=== PATIENT | male | born 1955 | race Hispanic/Latino ===

== ENCOUNTER 2021-09-02 01:01 | Observation (INO) | payer OTHER ==
[~2021-09-02] VITALS: Ht 152.4 cm; Wt 62.7 kg
[2021-09-02 01:24] LABS: BASOPHILS % (AUTO) 0.5 % (0.0-5.0); EOSINOPHILS % (AUTO) 1.7 % (0.0-8.0); HEMATOCRIT 35.2 % (42-54); LYMPHOCYTES % (AUTO) 15.7 % (21.0-51.0); MEAN CORPUSCULAR HEMOGLOBIN 30.3 pg (27.0-33.0); MEAN CORPUSCULAR HGB CONC 34.4 g/dL (32.0-36.0); MEAN CORPUSCULAR VOLUME 88.2 fL (79-99); MONOCYTES % (AUTO) 7.8 % (3.0-13.0); NEUTROPHILS % (AUTO) 74.1 % (40.0-77.0); PLATELET COUNT (AUTO) 265 K/uL (130-400); RED BLOOD CELL COUNT(AUTO) 3.99 MIL/uL (4.50-6.20); RED CELL DISTRIBUTION WIDTH 13.4 % (11.0-15.5); WHITE BLOOD COUNT (AUTO) 8.8 K/uL (4.8-10.8)
[2021-09-02 01:28] LABS: APPEARANCE,URINE Clear (CLEAR); BILIRUBIN,URINE Negative (NEGATIVE); COLOR,URINE Yellow (YELLOW); GLUCOSE, URINE (UA) Negative (NEGATIVE); KETONES,URINE Negative (NEGATIVE); LEUKOCYTE ESTERASE ,URINE Negative (NEGATIVE); NITRATE,URINE Negative (NEGATIVE); OCCULT BLOOD,URINE Negative (NEGATIVE); PH,URINE 7.5 (5.0-8.0); PROTEIN,URINE Negative (NEGATIVE); UROBILINOGEN,URINE 0.2 mg/dL (0.2-1.0)
[2021-09-02] MEDS ORDERED: LABETALOL 20MG SYG IV ONE (01:30)
[2021-09-02] MEDS ORDERED: DEXTROSE 50%-WATER 50 ML DISP.SYRIN IV ONE (01:30)
[2021-09-02 01:36] LABS: CARBON DIOXIDE 28 mmol/L (21-32); CHLORIDE 102 mmol/L (101-111); CREATININE 0.8 mg/dL (0.5-1.5); GLOMERULAR FILTR. RATE CALC 103 mL/min (>60); GLUCOSE,RANDOM 72 mg/dL (70-105); POTASSIUM 3.7 mmol/L (3.5-5.1); SODIUM SERUM 140 mmol/L (136-145); UREA NITROGEN, BLOOD 13 mg/dL (7-18)
[2021-09-02 01:42] LABS: ALANINE AMINOTRANSFERASE 26 U/L (12-78); ALBUMIN 4.2 g/dL (3.5-5.0); ASPARTATE AMINOTRANSFERASE 25 U/L (10-37); BILIRUBIN,TOTAL 0.3 mg/dL (0.2-1.0); TOTAL PROTEIN, SERUM 8.1 g/dL (6.0-8.3)
[2021-09-02 01:43] LABS: ALCOHOL, BLOOD < 3 mg/dL (0-10)
[2021-09-02] MEDS ORDERED: DEXTROSE 10%-WATER 1,000 ML IV SCH (02:00)
[2021-09-02] MEDS ORDERED: DEXTROSE 10%-WATER 1,000 ML IV ONE (02:03)
[2021-09-02] MEDS ORDERED: NITROGLYCERIN 0.4 MG SL TAB SL PRN (03:00)
[2021-09-02] MEDS ORDERED: GUAIFENESIN-DM 200/20 MG 10 ML PO PRN (03:00)
[2021-09-02] MEDS ORDERED: HYDRALAZINE 20MG/ML VIAL IV PRN (03:00)
[2021-09-02] MEDS ORDERED: ACETAMINOPHEN 325 MG TAB PO PRN ×2 (03:00)
[2021-09-02] MEDS ORDERED: LACTULOSE 20 GM/30 ML UDCUP PO PRN (03:00)
[2021-09-02] MEDS ORDERED: ONDANSETRON 4MG INJ IV PRN (03:00)
[2021-09-02] MEDS ORDERED: MAG/ALUM/SIMETH 30 ML UDCUP PO PRN (03:00)
[2021-09-02] MEDS ORDERED: ZOLPIDEM TARTRATE 5 MG TAB PO PRN (03:00)
[2021-09-02] MEDS ORDERED: SIMV40TA59 PO (03:02)
[2021-09-02] MEDS ORDERED: GLYB1TAB32 PO (03:02)
[2021-09-02] MEDS ORDERED: LISI10TA24 PO (03:02)
[2021-09-02] MEDS ORDERED: ASPI-1197 PO (03:02)
[2021-09-02 03:18] VITALS: BP 148/69
[2021-09-02 07:54] LABS: HEMOGLOBIN A1C 6.6 % (4.0-6.0)
[2021-09-02 08:09] VITALS: BP 124/75
[2021-09-02] MEDS: FAMOTIDINE 20MG VIAL IV SCH (10:19)
[2021-09-02] MEDS: LISINOPRIL 10 MG TABLET PO SCH (10:19)
[2021-09-02] MEDS: ASPIRIN 81MG CHEW TAB PO SCH (10:19)
[2021-09-02] MEDS: ENOXAPARIN SODIUM 30 MG/0.3 ML SQ SCH (10:20)
[2021-09-02 10:54] VITALS: BP 121/63
[2021-09-02 15:42] VITALS: BP 113/66
[2021-09-02 20:14] VITALS: BP 131/90
[2021-09-02] MEDS ORDERED: SIMVASTATIN 10 MG TABLET PO SCH (21:00)
[2021-09-02 23:26] VITALS: BP 120/65
[2021-09-03 03:35] VITALS: BP 125/72
[2021-09-03 04:34] LABS: BASOPHILS % (AUTO) 1.2 % (0.0-5.0); EOSINOPHILS % (AUTO) 5.3 % (0.0-8.0); LYMPHOCYTES % (AUTO) 36.5 % (21.0-51.0); MEAN CORPUSCULAR HEMOGLOBIN 29.9 pg (27.0-33.0); MEAN CORPUSCULAR HGB CONC 33.1 g/dL (32.0-36.0); MEAN CORPUSCULAR VOLUME 90.2 fL (79-99); MONOCYTES % (AUTO) 10.2 % (3.0-13.0); NEUTROPHILS % (AUTO) 46.6 % (40.0-77.0); PLATELET COUNT (AUTO) 242 K/uL (130-400); RED BLOOD CELL COUNT(AUTO) 3.88 MIL/uL (4.50-6.20); RED CELL DISTRIBUTION WIDTH 13.5 % (11.0-15.5); WHITE BLOOD COUNT (AUTO) 5.9 K/uL (4.8-10.8)
[2021-09-03 05:07] LABS: ALBUMIN 3.6 g/dL (3.5-5.0); BILIRUBIN,TOTAL 0.4 mg/dL (0.2-1.0); CREATININE 0.7 mg/dL (0.5-1.5); POTASSIUM 4.1 mmol/L (3.5-5.1); TOTAL PROTEIN, SERUM 7.4 g/dL (6.0-8.3)
[2021-09-03 08:42] VITALS: BP 133/67
[2021-09-03] MEDS: ENOXAPARIN SODIUM 30 MG/0.3 ML SQ SCH (09:18)
[2021-09-03] MEDS: ASPIRIN 81MG CHEW TAB PO SCH (09:18)
[2021-09-03] MEDS: FAMOTIDINE 20MG VIAL IV SCH (09:19)
[2021-09-03] MEDS: LISINOPRIL 10 MG TABLET PO SCH (09:19)
[2021-09-03 11:20] VITALS: BP 128/76
[2021-09-03 17:08] VITALS: BP 143/77
== END 2021-09-03 18:00 | disposition home or self-care (01) ==
LOC: EDH 01:01 → EDHIP 01:51 → 3CH 02:28
PROVIDERS: ADMIT Internal Medicine Critical Care Medicine; ATTEND Internal Medicine Critical Care Medicine
DX: E11.649 Type 2 diabetes mellitus with hypoglycemia without coma (principal); T38.3X5A Adverse effect of insulin and oral hypoglycemic [antidiabetic] drugs, initial encounter; I10 Essential (primary) hypertension; E78.00 Pure hypercholesterolemia, unspecified; H40.9 Unspecified glaucoma; Z79.82 Long term (current) use of aspirin; Z87.891 Personal history of nicotine dependence
CPT/HCPCS: 36415 ×2; 80053 ×2; 81003; 82948 ×13; 83036; 83605; 85025 ×2; 96361; 96372 ×2; 96374; 96375; 96376; 99284; G0378 ×36; J1650 ×2; J3490 ×3; J7070

== ENCOUNTER → 2025-02-08 | Outpatient (CLI) | payer MEDICARE ==
[~2025-02-08] MED LIST: ASPI-1197 PO; GADOTERATE MEGLUMINE 10 MMOL/20 ML VIAL IV ONE; LISI10TA24 PO; SIMV40TA59 PO
--- NOTE | 2025-02-08 14:24 | HMCIMG ---
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 Axial T1, T2 and proton density images were also acquired. FINDINGS: Straightening of the spine consistent with spasm. No fractures or dislocations are identified.The bone marrow signal is normal for age. The spinal canal contents are preserved. The conus terminates at a normal level at T12 to L2. The paraspinal muscles and other tissues show no significant abnormalities. Evaluation of the lumbar spine by level: T12-L1: There is no spinal canal stenosis. No disc herniation or bulge is noted. There is no neural foraminal stenosis, impingement, or narrowing. L1-L2: There is no spinal canal stenosis. No disc herniation or bulge is noted. There is no neural foraminal stenosis, impingement, or narrowing. L2-L3: There is a broad-based posterior bulge causing neural foramina narrowing bilaterally at this level. Nerve root impingement seen. L3-L4: There is no spinal canal stenosis. No disc herniation or bulge is noted. There is no neural foraminal stenosis, impingement, or narrowing L4-L5: There is a broad-based left subarticular zone disc protrusion causing left-sided significant nerve root impingement. L5-S1: Degenerative changes of the facet joints are noted at L5 without fracture, with grade 1 anterolisthesis of L5 over S1 causing significant nerve root impingement bilaterally. Impression: Spasm. Spondylitic changes and multilevel impingement.
== END | disposition home or self-care (01) ==
LOC: RAH 10:51
PROVIDERS: ATTEND Family Medicine
DX: M47.816 Spondylosis without myelopathy or radiculopathy, lumbar region (principal); M51.369 Other intervertebral disc degeneration, lumbar region without mention of lumbar back pain or lower extremity pain; M51.26 Other intervertebral disc displacement, lumbar region; M43.17 Spondylolisthesis, lumbosacral region; M48.061 Spinal stenosis, lumbar region without neurogenic claudication; G83.14 Monoplegia of lower limb affecting left nondominant side
CPT/HCPCS: 72158; A9575